=== PATIENT | female | born 1955 | race Asian ===

== ENCOUNTER → 2024-06-08 11:40 | Outpatient (REF) | payer MEDICARE, SELFPAY | LOC: HWRCS 11:40 | PROVIDERS: ATTENDING PHYSICIAN Internal Medicine Cardiovascular Disease; FAMILY PHYSICIAN Internal Medicine | DX: R07.9 Chest pain, unspecified (principal); I73.9 Peripheral vascular disease, unspecified; E78.00 Pure hypercholesterolemia, unspecified; E78.5 Hyperlipidemia, unspecified; R01.1 Cardiac murmur, unspecified; I35.0 Nonrheumatic aortic (valve) stenosis | CPT/HCPCS: 78452; 93017; A9500; J2785 ==

== ENCOUNTER → 2024-06-12 13:38 | Outpatient (REF) | payer MEDICARE, SELFPAY | LOC: RAD 13:38 | PROVIDERS: ATTENDING PHYSICIAN Internal Medicine Cardiovascular Disease; FAMILY PHYSICIAN Internal Medicine | DX: R07.9 Chest pain, unspecified (principal); I73.9 Peripheral vascular disease, unspecified; E78.00 Pure hypercholesterolemia, unspecified; E78.5 Hyperlipidemia, unspecified; R01.1 Cardiac murmur, unspecified; I35.0 Nonrheumatic aortic (valve) stenosis | CPT/HCPCS: 93880 ==

== ENCOUNTER → 2024-07-20 14:24 | Outpatient (REF) | payer MEDICARE, SELFPAY | LOC: HWWDC 14:24 | PROVIDERS: ATTENDING PHYSICIAN Internal Medicine | DX: Z12.31 Encounter for screening mammogram for malignant neoplasm of breast (principal); M85.80 Other specified disorders of bone density and structure, unspecified site; M85.89 Other specified disorders of bone density and structure, multiple sites | CPT/HCPCS: 77063; 77067; 77080 ==

== ENCOUNTER → 2024-11-30 08:46 | Outpatient (REF) | payer MEDICARE, SELFPAY | LOC: RAD 08:46 | PROVIDERS: ATTENDING PHYSICIAN Internal Medicine Cardiovascular Disease; FAMILY PHYSICIAN Internal Medicine | DX: I73.9 Peripheral vascular disease, unspecified (principal) | CPT/HCPCS: 93922; 93925 ==

== ENCOUNTER → 2024-12-04 11:47 | Outpatient (REF) | payer MEDICARE, SELFPAY ==
[2024-12-04 14:44] LABS: Blood Urea Nitrogen 8 mg/dl (7-17); Calcium 9.2 mg/dl (8.4-10.2); Carbon Dioxide 26 mmol/L (22-30); Chloride 106 mmol/L (98-107); Glucose 88 mg/dl (70-99); Potassium 4.5 mmol/L (3.5-5.1); Sodium 141 mmol/L (135-145); eGFR > 60.00
== END ==
LOC: REG 11:47
PROVIDERS: ATTENDING PHYSICIAN Surgery Vascular Surgery
DX: I73.9 Peripheral vascular disease, unspecified (principal)
CPT/HCPCS: 36415; 80048

== ENCOUNTER → 2024-12-07 17:16 | Outpatient (REF) | payer MEDICARE, SELFPAY | LOC: RAD 17:16 | PROVIDERS: ATTENDING PHYSICIAN Surgery Vascular Surgery; FAMILY PHYSICIAN Internal Medicine | DX: I73.9 Peripheral vascular disease, unspecified (principal) | CPT/HCPCS: 75635; Q9967 ==

== ENCOUNTER 2025-03-20 16:43 | Outpatient (RCR) | payer MEDICARE, SELFPAY | END 2025-03-20 23:59 | disposition home or self-care (01) | LOC: CRHB 16:43 | PROVIDERS: Surgery Vascular Surgery; ATTENDING PHYSICIAN Internal Medicine | DX: I70.213 Atherosclerosis of native arteries of extremities with intermittent claudication, bilateral legs (principal) | CPT/HCPCS: 93668 ==

== ENCOUNTER 2025-04-23 14:45 | Outpatient (RCR) | payer MEDICARE, SELFPAY | END 2025-04-23 23:59 | disposition home or self-care (01) | LOC: CRHB 14:45 | PROVIDERS: ATTENDING PHYSICIAN Internal Medicine | DX: I70.213 Atherosclerosis of native arteries of extremities with intermittent claudication, bilateral legs (principal) | CPT/HCPCS: 93668 ==